=== PATIENT | male | born 1990 ===

== ENCOUNTER 2022-07-05 17:07 | Emergency (ER) | payer SELFPAY ==
[2022-07-05] MEDS ORDERED: SODIUM CHLORIDE 0.9% 1000 ML 1,000 ML IV ONE (17:50)
--- NOTE | 2022-07-05 17:51 | Emergency Department Report ---
History of Present Illness - General Chief Complaint: Overdose Stated Complaint: OVERDOSE Time Seen by Provider: 07/05/22 17:47 Source: EMS Mode of arrival: Stretcher Limitations: Altered Mental Status - History of Present Illness Initial Comments: Patient is a 32-year-old male that presents emergency room with complaints of overdose. Patient brought in by EMS. Patient is difficult to arouse. Patient states that he has been taking multiple drugs today. Patient denies use of opiates. Patient states has been doing speedballs of uppers and downers and is not sure what he has been using. Patient was given Narcan by EMS with no results. Patient was unresponsive the entire trip by EMS. Report received from EMS. Patient denies pain. Patient denies suicidal ideations. Patient denies homicidal ideations. Patient states he uses drugs a lot. Patient denies recent travel. Patient denies recent international travel. Patient denies exposure to the novel coronavirus. Patient denies sick contacts. Patient denies fever and chills. Patient denies cough. Patient denies diarrhea. Patient denies coming in contact with anybody with symptoms of the novel coronavirus. Complaint: accidental overdose Context: Accidental Overdose: wanted to get high Treatments Prior to Arrival: narcan - Related Data Allergies Allergy/AdvReac Type Severity Reaction Status Date / Time No Known Allergies Allergy Verified 07/05/22 21:24 ED Review of Systems ROS: Stated complaint: OVERDOSE Other details as noted in HPI Constitutional: denies: chills, fever Eyes: denies: eye pain, eye discharge, vision change ENT: denies: ear pain, throat pain Respiratory: denies: cough, shortness of breath, wheezing Cardiovascular: denies: chest pain, palpitations Endocrine: no symptoms reported Gastrointestinal: denies: abdominal pain, nausea, diarrhea Genitourinary: denies: urgency, dysuria Musculoskeletal: denies: back pain, joint swelling, arthralgia Skin: denies: rash, lesions Neurological: denies: headache, weakness, paresthesias Psychiatric: denies: anxiety, depression Hematological/Lymphatic: denies: easy bleeding, easy bruising ED Past Medical Hx - Past Medical History Previous Medical History?: No - Surgical History Past Surgical History?: No - Family History Family history: no significant - Social History Smoking Status: Current Every Day Smoker Substance Use Type: Cocaine, Methamphetamines, Other ED Physical Exam - General Limitations: Altered Mental Status General appearance: in no apparent distress, lethargic (But arousable) - Head Head exam: Present: atraumatic, normocephalic - Eye Eye exam: Present: normal appearance, PERRL Pupils: Present: normal accommodation - ENT ENT exam: Present: mucous membranes dry - Neck Neck exam: Present: normal inspection - Respiratory Respiratory exam: Present: normal lung sounds bilaterally. Absent: respiratory distress, wheezes, rales - Cardiovascular Cardiovascular Exam: Present: regular rate, normal rhythm. Absent: systolic murmur, diastolic murmur, rubs, gallop - GI/Abdominal GI/Abdominal exam: Present: soft, normal bowel sounds - Rectal Rectal exam: Present: deferred - Extremities Exam Extremities exam: Present: normal inspection - Back Exam Back exam: Present: normal inspection - Neurological Exam Neurological exam: Present: alert, oriented X3 - Psychiatric Psychiatric exam: Present: normal affect, normal mood - Skin Skin exam: Present: warm, dry, intact, normal color. Absent: rash ED Course Vital Signs 07/05/22 07/05/22 07/05/22 17:30 18:10 18:15 Pulse Rate 102 H 98 H 93 H Respiratory 16 18 19 Rate Blood Pressure 123/73 Blood Pressure 140/84 [Right] O2 Sat by Pulse 96 97 98 Oximetry 07/05/22 07/05/22 07/05/22 18:30 18:45 19:00 Pulse Rate 93 H 94 H 93 H Respiratory 19 19 17 Rate Blood Pressure 123/73 128/76 135/75 Blood Pressure [Right] O2 Sat by Pulse 95 95 96 Oximetry 07/05/22 07/05/22 07/05/22 19:16 19:30 19:46 Pulse Rate 92 H 88 87 Respiratory 16 16 16 Rate Blood Pressure 124/76 125/78 129/70 Blood Pressure [Right] O2 Sat by Pulse 97 97 97 Oximetry 07/05/22 07/05/22 07/05/22 20:00 20:16 20:30 Pulse Rate 88 85 83 Respiratory 16 16 30 H Rate Blood Pressure 117/71 106/66 116/64 Blood Pressure [Right] O2 Sat by Pulse 97 96 96 Oximetry 07/05/22 07/05/22 07/05/22 20:48 21:00 21:16 Pulse Rate 73 87 78 Respiratory 13 19 14 Rate Blood Pressure Blood Pressure [Right] O2 Sat by Pulse 96 98 Oximetry 07/05/22 07/05/22 07/05/22 21:30 21:46 22:00 Pulse Rate 75 70 76 Respiratory 11 L 10 L 11 L Rate Blood Pressure 116/64 116/64 Blood Pressure [Right] O2 Sat by Pulse 99 99 99 Oximetry 07/05/22 07/05/22 07/05/22 22:16 22:30 22:46 Pulse Rate 69 71 67 Respiratory 11 L 11 L 11 L Rate Blood Pressure 116/64 116/64 116/64 Blood Pressure [Right] O2 Sat by Pulse 99 100 100 Oximetry 07/05/22 07/05/22 23:00 23:16 Pulse Rate 70 54 L Respiratory 12 14 Rate Blood Pressure 116/64 116/64 Blood Pressure [Right] O2 Sat by Pulse 100 100 Oximetry - Reevaluation(s) Reevaluation #1: Patient is lethargic but arousable. Patient answers questions appropriately. 07/05/22 21:22 Reevaluation #2: Patient is awake alert and oriented x4. Patient answering all questions appropriately. I discussed all results and clinical findings with patient. I discussed plan of care with patient. Patient agrees with plan of care. Patient is stable for discharge. Patient will be discharged home. Patient given discharge instructions. Patient voiced understanding of discharge instructions. 07/06/22 01:01 ED Medical Decision Making - Lab Data Result diagrams: 07/05/22 19:26 07/05/22 19:26 - Radiology Data Radiology results: report reviewed CT HEAD WITHOUT CONTRAST INDICATION / CLINICAL INFORMATION: ams. TECHNIQUE: All CT scans at this location are performed using CT dose reduction for ALARA by means of automated exposure control. COMPARISON: None available. FINDINGS: CEREBRAL/CEREBELLAR PARENCHYMA: The cerebral and cerebellar hemispheres are normal for age. No CT evidence for an acute or subacute territorial infarct. HEMORRHAGE: No acute intra-axial hemorrhage or extra-axial fluid collection. MASS: No mass or mass effect. VENTRICULAR SYSTEM: Normal in size and morphology for the patient's age. ORBITS: No acute process. SOFT TISSUES/SKULL: No scalp hematoma or skull fracture. PARANASAL SINUSES/MASTOID AIR CELLS: Normal as visualized. IMPRESSION: 1. No acute intracranial process. - Medical Decision Making Patient is a 32-year-old male who presents emergency room for altered mental status and lethargy and drug overdose. Patient was given Narcan by EMS with no response. Patient states that he was doing speedballs all day. Patient's not sure when he overdosed. Patient answers most questions appropriately on initial evaluation. Patient had a head CT for altered mental status. Patient had labs done which were essentially unremarkable. Patient's UDS was positive for cocaine, meth, benzos and marijuana. Patient does not require any further emergency medical service. Prior to discharge, the patient was alert awake and oriented x4. Patient is ambulatory. Patient's family at bedside. I discussed all results and clinical findings with patient. I discussed plan of care with patient. Patient agrees with plan of care. Patient is stable for discharge. Patient will be discharged home. Patient given discharge instructions. Patient voiced understanding of discharge instructions. - Differential Diagnosis Overdose, altered mental status Critical Care Time: Yes Critical care time in (mins) excluding proc time.: 45 Critical care attestation.: If time is entered above; I have spent that time in minutes in the direct care of this critically ill patient, excluding procedure time. Critical Care Time: 45 minutes ED Disposition Clinical Impression: Overdose Qualifiers: Encounter type: initial encounter Injury intent: accidental or unintentional Qualified Code(s): T50.901A - Poisoning by unspecified drugs, medicaments and biological substances, accidental (unintentional), initial encounter Altered mental status Qualifiers: Altered mental status type: unspecified Qualified Code(s): R41.82 - Altered mental status, unspecified Disposition: 01 HOME / SELF CARE / HOMELESS Is pt being admited?: No Does the pt Need Aspirin: No Condition: Stable Instructions: Accidental Drug Poisoning, Adult, Chronic Drug Toxicity Additional Instructions: Patient to follow-up with primary care in 2 to 3 days. Patient to avoid drug and alcohol use. Patient to rest. Patient to increase water. Patient to take Tylenol or ibuprofen as needed for pain. Patient to return to the ER if condition worsens, changes or new symptoms arise. In case of an emergency, please contact the following numbers: [place] Crisis and Access Line: Number: Crisis Text Line: (Text START) Number: 169929 Suicide Prevention Line: Number: w Emergency Number: 911 SUBSTANCE ABUSE PROGRAMS: [facility]: Location: [place], [place] [facility] Address: [address] [place] [address] [facility]: Address: [address] [place] [address] [facility]: Address: [address] [place] [address] [facility]: Address: [address] [place] [address] [facility] Address: [address] [place] [id number]. Please contact above numbers to attempt placement into free based program. Medicaid Programs: [facility]: Address: [address] [place] [address] [facility]: Address: [address] [place] [address] Professional and Agency Contacts To help [facility] (05/05) [place] Crisis Line: Suicide Prevention Line: Crisis Text Line: Text START to 599037 Emergency: 911 Outpatient COMMUNITY Behavioral Health Resources: [facility]: [facility] [address] [place], [place] [address] [place]: [facility] [address] [place] [address] Friday thru Friday - 8am - 5pm Call to schedule an assessment for mental health and substance abuse programs [facility] Address: [address] [place] [address] Friday thru Friday- 7am-2pm [facility] Address: [address], [place] [address] Friday thru Friday: 8:30AM-5PM Referrals: PRIMARY MD JOSE MIGUEL [Primary Care Provider] - 2-3 Days BRANDON CARMONA MD [Staff Physician] - 2-3 Days Time of Disposition: 01:04
[2022-07-05 19:49] LABS: Basophils # (Auto) 0.1 K/mm3 (0.0-0.1); Basophils % (Auto) 1.2 % (0.0-1.8); Eosinophils # (Auto) 0.2 K/mm3 (0.0-0.4); Eosinophils % (Auto) 1.7 % (0.0-4.3); Hematocrit 37.7 % (35.5-45.6); Hemoglobin 12.4 gm/dl (11.8-15.2); Lymphocytes # (Auto) 1.3 K/mm3 (1.2-5.4); Lymphocytes % (Auto) 11.2 % (13.4-35.0); Mean Corpuscular HGB Conc 33 % (32-34); Mean Corpuscular Volume 93 fl (84-94); Monocytes # (Auto) 0.7 K/mm3 (0.0-0.8); Monocytes % (Auto) 6.1 % (0.0-7.3); Platelet Count 271 K/mm3 (140-440); Red Blood Count 4.05 M/mm3 (3.65-5.03); Red Cell Distribution Width 13.8 % (13.2-15.2)
[2022-07-05 19:59] LABS: Alanine Aminotransferase 51 units/L (7-56); Albumin 4.1 g/dL (3.9-5); BUN/Creatinine Ratio 12; Blood Urea Nitrogen 11 mg/dL (9-20); Calcium 8.9 mg/dL (8.4-10.2); Hemolysis Index 7
[2022-07-05 21:12] VITALS: BP 116/64
[2022-07-06 00:37] LABS: Bilirubin,Urine Negative (Negative); Blood,Urine Negative (Negative); Color,Urine Yellow (Yellow); Urobilinogen,Urine 0.2 mg/dL (<2.0)
[2022-07-06 00:41] LABS: Mucus,Urine FEW /HPF
[2022-07-06 00:46] LABS: Amphetamine Screen,Urine PRESUMPTIVE POSITIVE; Benzodiazepines Screen,Urine PRESUMPTIVE POSITIVE; Cannabinoid Screen,Urine PRESUMPTIVE POSITIVE; Cocaine Screen,Urine PRESUMPTIVE POSITIVE; Methadone Screen,Urine PRESUMPTIVE NEGATIVE; Opiate Screen,Urine PRESUMPTIVE NEGATIVE
--- NOTE | 2022-07-06 01:14 | Cat Scan Report ---
CT HEAD WITHOUT CONTRAST INDICATION / CLINICAL INFORMATION: ams. TECHNIQUE: All CT scans at this location are performed using CT dose reduction for ALARA by means of automated exposure control. COMPARISON: None available. FINDINGS: CEREBRAL/CEREBELLAR PARENCHYMA: The cerebral and cerebellar hemispheres are normal for age. No CT nova dence for an acute or subacute territorial infarct. HEMORRHAGE: No acute intra-axial hemorrhage or extra-axial fluid collection. MASS: No mass or mass effect. VENTRICULAR SYSTEM: Normal in size and morphology for the patient's age. ORBITS: No acute process. SOFT TISSUES/SKULL: No scalp hematoma or skull fracture. PARANASAL SINUSES/MASTOID AIR CELLS: Normal as visualized. IMPRESSION: 1. No acute intracranial process. Signer Name: Alvaro Payton MD Signed: 07/06/2022 1:09 AM Workstation Name: [id number]
== END 2022-07-06 01:30 | disposition home or self-care (01) ==
LOC: ED 17:07
DX: T50.901A Poisoning by unspecified drugs, medicaments and biological substances, accidental (unintentional), initial encounter (principal); Y92.89 Other specified places as the place of occurrence of the external cause; R41.82 Altered mental status, unspecified
CPT/HCPCS: 36415; 70450; 80053; 80307; 80320; 81001; 85025; 96360; 99284; G0480